=== PATIENT | female | born 1935 | race Caucasian/White ===

== ENCOUNTER 2017-03-26 16:59 | Inpatient (IN) | payer MEDICARE, OTHER ==
[2017-03-26 17:44] VITALS: BP 144/77
[2017-03-26] MEDS ORDERED: guaiFENesin 200 MG/10 ML UDC PO PRN (21:00)
[2017-03-27] MEDS: Pantoprazole 40 mg EC Tab PO SCH (08:56)
[2017-03-27] MEDS ORDERED: Enoxaparin 40 mg/0.4 mL 0.4mL Syr SUBQ SCH (09:00)
[2017-03-27] MEDS ORDERED: Potassium Chloride 20 mEq ER Tab PO SCH (09:00)
[2017-03-27] MEDS: Amoxicillin/Clavulanat 875/125 Tab PO SCH ×2 (10:05→16:48)
--- NOTE | 2017-03-27 10:36 | Diagnostic Imaging Report ---
Portable chest x-ray HISTORY: Shortness of breath, COPD Prior exams are not available for comparison. The patient is rotated. Heart size difficult to assess with portable technique and a poor inspiration. There is slight elevation of the left hemidiaphragm. Atherosclerotic calcification seen in the aorta. No acute focal pulmonary processes. Scoliosis and degenerative changes seen in the spine. IMPRESSION: 1. No acute focal pulmonary processes 2. Atherosclerotic vascular changes
[2017-03-27 10:54] LABS: % BASOPHILS 0.5 % (0.0-2.0); % EOSINOPHILS 0.7 % (0.0-5.0); % LYMPHOCYTES 25.5 % (20.0-50.0); % NEUTROPHILS 66.3 % (40.0-80.0); HEMATOCRIT 44.6 % (41.0-60); HEMOGLOBIN 14.8 gm/dL (12-16); MEAN CELL VOLUME 92.9 fl (81-100); MEAN CORPUSCULAR HEMOGLOBIN 30.8 pg (27.0-31.0); MEAN CORPUSCULAR HGB CONC 33.1 pg (28.0-36.0); MEAN PLATELET VOLUME 8.3 fl; NEUTROPHILE ABSOLUTE 5.8 Th/cmm (1.8-8.0); PLATELET COUNT 199 Th/cmm (150-400); WHITE BLOOD COUNT 8.7 Th/cmm (4.8-10.8)
[2017-03-27] MEDS ORDERED: Haloperidol Lactate 5 mg/mL 1mL Vial IM ONE (11:05)
[2017-03-27] MEDS ORDERED: Haloperidol Lactate 5 mg/mL 1mL Vial ONE (11:05)
[2017-03-27 11:58] LABS: ALB/GLOB RATIO 1.6 (1.0-1.8); ALKALINE PHOSPHATASE 93 U/L (34-104); ANION GAP 9.7 (7.0-16.0); BILIRUBIN,TOTAL 0.4 mg/dL (0.3-1.0); BUN - UREA NITROGEN 17 mg/dL (7-25); BUN/CREATININE RATIO 28.3; CALCIUM SERUM 9.6 mg/dL (8.6-10.3); CHLORIDE 103 mEq/L (98-107); CREATININE - SERUM 0.6 mg/dL (0.6-1.2); GLUCOSE 116 mg/dL (70-105); POTASSIUM SERUM 3.7 mEq/L (3.5-5.1); SGOT 10 U/L (13-39); SGPT/ALT 6 U/L (7-52); SODIUM SERUM 135 mEq/L (136-145)
[2017-03-27] MEDS: Albuterol/Ipratropium Neb 3 ML AERS HHN SCH ×2 (12:51→19:19)
--- NOTE | 2017-03-27 13:14 | History & Physical ---
ADMIT DATE: 03/27/2017 PATIENT IDENTIFICATION: An 81-year-old female. REQUESTING PHYSICIAN: Dr. Chakraborty. HISTORY SOURCE: Talking to the patient, reviewing the chart from [facility]. HISTORY OF PRESENT ILLNESS: This is an 81-year-old female who initially presented at [facility] after the patient had unknown number of Seroquel ingestion for a suicidal attempt where the patient was intubated and remained on ventilator. The patient was extubated and subsequently transferred here to [facility] for psychiatric care considering the patient had significant history of psychiatric illness and she needed to have her psych medications to be adjusted. The patient does have a diagnosis of COPD, hypertension, GERD, DJD, and osteoporosis. She also tells me she has a history of CVA as well many years ago and the patient is legally blind. MEDICATIONS: At the time of transfer, which I have reviewed and reconciled appropriately. ALLERGIES: The patient is not allergic to medications. SOCIAL HISTORY: She was living in [facility]. She stated that she still smokes. Denies any alcohol use, any street drug use. FAMILY MEDICAL HISTORY: Remarkable for hypertension. REVIEW OF SYSTEMS: The patient stated that she is legally blind. She can't see well. She has difficulty in walking, though the patient stated that she can live independently. She denies any headache. Denies any chest pain. Does have shortness of breath, but no paroxysmal nocturnal dyspnea or orthopnea. Denies any cough. Denies any fever, chills, abdominal pain, nausea, vomiting, hematemesis, hematuria, hematochezia, melena. No seizure or syncopal episode. PHYSICAL EXAMINATION: GENERAL: The patient is alert, awake, lying in the bed, very feisty, without any acute distress. VITAL SIGNS: Temperature 98.3, pulse 74, respiratory rate 18, blood pressure 153/86. HEENT: Normocephalic, atraumatic. Extraocular muscles are intact. Pupil react to light, legal blindness noted. Conjunctival congestion noted. Oropharynx is congested, absent upper and lower dentition noted. NECK: Supple. No JVD, no lymphadenopathy, thyromegaly. HEART: Both heart sounds are regular. No S3, no S4. CHEST: Lung equal in expansion. Mild expiratory wheezing. ABDOMEN: Protuberant, soft. No guarding, no rigidity. Bowel sounds are present. No palpable mass. EXTREMITIES: No edema, no cyanosis, no clubbing. Peripheral pulses +1.. No calf tenderness noted. Diffuse osteoarthritic changes noted. BACK: Remarkable kyphosis. No scoliosis. NEUROLOGIC: The patient is alert, awake, follows commands. No facial asymmetry. Moving upper extremities without any difficulty. Lower extremities, decreased power noted. Sensation to touch was unable to assess. Unable to do cerebellar sign due to high risk for fall. AVAILABLE DIAGNOSTIC DATA: Performed at [facility] are reviewed. Total time reviewing the record is approximately 15 minutes. CLINICAL IMPRESSION: 1. Status post Seroquel overdose. 2. Status post respiratory failure requiring endotracheal intubation and mechanical ventilation, suspected aspiration pneumonia. 3. Chronic obstructive pulmonary disease. 4. Hypertension. 5. Gastroesophageal reflux disease. 6. Degenerative joint disease. 7. Osteoporosis. 8. Legal blindness. 9. High risk for fall. 10. Psychiatric disorder. PLAN: The patient has been admitted at this time to Psychiatric Unit. Psychiatric evaluation and management deferred to psychiatrist. The patient will be placed on prednisone, she was taking 20 mg a day and tapered down as tolerated. The patient is to have Pulmicort and nebulizer treatment with albuterol and Atrovent. The patient will have a followup chest x-ray and blood tests done in order to assess aspiration pneumonia, as well as the potassium status as the patient was taking potassium tablet when she came to the [facility]. The patient will be continued her antihypertensive medication along with medications of her Protonix for her GERD and gastritis. The patient will have fall precautions as well nutritional supplement will be provided along with fall precautions. We will give further recommendations once other lab data are available. The patient is medically stable at this time to psychiatric treatment for her underlying psychiatric illness. In the view of her osteoporosis, I will give her calcium with vitamin D supplement for now and have further workup to be done. Further medications for osteoporosis can be given as an outpatient as well. Care plan is reviewed and discussed with the patient's assigned RN as well as the patient as well. JOB# [id number]
[2017-03-27] MEDS: Budesonide 0.5 Mg/2 mL Ud HHN SCH (19:19)
[2017-03-28] MEDS: Albuterol/Ipratropium Neb 3 ML AERS HHN SCH ×4 (01:00→20:09)
--- NOTE | 2017-03-28 03:40 | Psychosocial Evaluation ---
DATE OF SERVICE: 03/26/2017 IDENTIFYING DATA: The patient is an 81-year-old woman, resident of [facility]. Information obtained by directly interviewing the patient as well as reviewing the admission papers and they are reliable. JUSTIFICATION OF HOSPITALIZATION: The patient is admitted here on involuntary basis in view of her acute agitation. CHIEF COMPLAINT: "I don't know, people are trying to hurt me." HISTORY OF PRESENT ILLNESS: This is the first psychiatric hospitalization to the Geropsychiatric Unit for this patient who has been reported to have been screaming and yelling and has been out of control. The patient is reported to have been taken to the [facility] where she has been medically cleared and transferred over here for further stabilization. As per the information obtained, the patient has been a resident of the [facility] and the patient has been transferred to [facility] for altered level of consciousness and the patient is reported to have taken large dose of Seroquel, 9 pills, 50 mg each and was found unresponsive. Paramedics were called and the patient has been transferred over here for further stabilization. PAST PSYCHIATRIC HISTORY: Details are not known. MEDICAL HISTORY AND PHYSICAL EXAMINATION: Requested to be done by Dr. Manuel and is noted to be significant for COPD, arthritis and hypertension. The patient is also legally blind. The patient prior to the hospitalization on acetaminophen, albuterol, Mylanta, aspirin, Haldol, Lasix, prednisone, Seroquel and temazepam. The dose of the medications are not available at this time, how much of the Seroquel that she has been taking. The patient is also reported to have been started on 5 mg of the citalopram and 2 mg of the Abilify prior to her being in here, Haldol has been given 5 mg as needed basis. PHYSICAL OR SEXUAL ABUSE HISTORY: None. LEGAL PROBLEMS: None at this time. STRENGTH AND ASSETS: The patient seems to be motivated. MENTAL STATUS EXAMINATION: The patient is an 81-year-old woman admitted on 5150 for being a danger to self, danger to others as per the information obtained. The patient has ingested 9 tablets of 50 mg each of Seroquel in suicidal ideation and suicidal attempt. The patient refused to cooperate here at the hospitalization. The patient has been getting easily agitated and is very paranoid. On that basis, the patient has been placed on a 5150. As per the information, the patient is also reported to have been mentioning that she wanted to and does not want to live anymore and the patient has reported that she is going to be doing it again to take her life. The patient is noted to be very paranoid. The patient at this time is noted to be screaming and yelling and has to be given her morning dose of medications. The patient also has been displaying self-abusive behaviors and also trying to threat to hurt others. The patient is alert and aware that she is in the hospital, but she is stating that it is none of my business and she does not need to give me anymore information. DIAGNOSTIC IMPRESSION: AXIS I: 1a. Psychotic disorder, not otherwise specified. 1b. Depressive disorder, not otherwise specified. AXIS II: None. AXIS III: As per Dr. Manuel. IMMEDIATE TREATMENT PLAN: The patient is going to be observed on inpatient unit, provided with supportive psychotherapy. The patient is going to be closely monitored. Encouraged to participate in the groups and verbalize the concerns. When stabilized, the patient is going to be discharged to ____ followed up on an outpatient. The patient is going to be placed because the patient is not able to care for self at this time. The patient is going to be continued on the Abilify and Lexapro. ESTIMATED LENGTH OF STAY: Three to five days. DISCHARGE CRITERIA: When she no longer a threat to self or others and be able to cope up with the stress. JOB# [id number]
[2017-03-28] MEDS: Budesonide 0.5 Mg/2 mL Ud HHN SCH ×2 (07:15→20:09)
[2017-03-28] MEDS ORDERED: Escitalopram Oxalate 5 mg Tab PO SCH (09:00)
[2017-03-28] MEDS: Pantoprazole 40 mg EC Tab PO SCH (09:18)
[2017-03-28] MEDS: Amoxicillin/Clavulanat 875/125 Tab PO SCH ×2 (09:20→17:45)
[2017-03-28] MEDS: Calcium Carb/Vit D 500 mg/200 U Tab PO SCH (09:20)
[2017-03-28] MEDS: predniSONE 5 mg/5 mL UDC PO SCH (09:28)
--- NOTE | 2017-03-28 23:39 | Progress Notes ---
DATE: 03/28/2017 PSYCHIATRIC PROGRESS NOTE SUBJECTIVE: Staff was spoken to. The patient is interviewed. Mood is noted to be irritable. Affect is constricted. The patient is screaming and yelling. The patient is not able to be redirected. Coping skills are noted to be very poor. Continues to be very paranoid and has been accusing other people of doing things behind her back. ASSESSMENT: The patient is still psychotic. PLAN: To continue the patient with the current medications. I encouraged the patient to verbalize the concerns rather than to act out. JOB# [id number]
[2017-03-29] MEDS: Albuterol/Ipratropium Neb 3 ML AERS HHN SCH ×4 (00:50→19:19)
[2017-03-29] MEDS: Budesonide 0.5 Mg/2 mL Ud HHN SCH ×2 (08:53→19:19)
[2017-03-29] MEDS: Amoxicillin/Clavulanat 875/125 Tab PO SCH ×2 (11:35→16:33)
[2017-03-29] MEDS: Calcium Carb/Vit D 500 mg/200 U Tab PO SCH (11:35)
[2017-03-29] MEDS: Pantoprazole 40 mg EC Tab PO SCH (11:37)
[2017-03-29] MEDS: predniSONE 5 mg/5 mL UDC PO SCH (11:37)
--- NOTE | 2017-03-29 12:49 | Progress Notes ---
DATE: 03/29/2017 PSYCHIATRIC PROGRESS NOTE SUBJECTIVE: Staff was spoken to. The patient is interviewed. Mood is noted to be irritable. Affect is constricted. Insight and judgment are noted to be still impaired. The patient continues to be paranoid, screaming and yelling. No side effects to the medications are noted. The patient has been having difficult time to cope with the stress. The patient has been not noted to be depressed, but on the other hand has been getting easily irritable and angry. ASSESSMENT: The patient is still paranoid. PLAN: To continue the patient with supportive therapy. I encouraged the patient to verbalize the concerns rather than to act out. [facility]# [id number]
[2017-03-29] MEDS ORDERED: Probiotic Screen MC PRN (14:03)
[2017-03-30] MEDS: Albuterol/Ipratropium Neb 3 ML AERS HHN SCH ×4 (01:14→19:17)
[2017-03-30] MEDS: Budesonide 0.5 Mg/2 mL Ud HHN SCH ×2 (07:28→19:19)
[2017-03-30] MEDS: predniSONE 5 mg/5 mL UDC PO SCH (08:42)
[2017-03-30] MEDS: Amoxicillin/Clavulanat 875/125 Tab PO SCH ×2 (08:42→16:13)
[2017-03-30] MEDS: Pantoprazole 40 mg EC Tab PO SCH (08:43)
[2017-03-30] MEDS: Calcium Carb/Vit D 500 mg/200 U Tab PO SCH (08:44)
[2017-03-31] MEDS: Albuterol/Ipratropium Neb 3 ML AERS HHN SCH ×4 (01:25→19:08)
--- NOTE | 2017-03-31 05:35 | Progress Notes ---
DATE: 03/30/2017 TIME PATIENT SEEN: Staff was spoken to. The patient is interviewed. Mood is noted to be irritable. Affect is constricted. The patient is screaming and yelling. Insight and judgment at this time are noted to be very much limited. The patient has been getting easily upset and the patient's coping skills are noted to be very poor because of her age, we have been very careful with the medications. ASSESSMENT: The patient is still impulsive and screaming and yelling and in view of her mood swings is decided to add the Depakote 125 mg b.i.d. and follow the patient today. JOB# [id number]
[2017-03-31] MEDS: Budesonide 0.5 Mg/2 mL Ud HHN SCH ×2 (07:52→19:08)
[2017-03-31] MEDS: Amoxicillin/Clavulanat 875/125 Tab PO SCH ×2 (09:08→16:53)
[2017-03-31] MEDS: Pantoprazole 40 mg EC Tab PO SCH (09:08)
[2017-03-31] MEDS: Calcium Carb/Vit D 500 mg/200 U Tab PO SCH (09:08)
[2017-03-31] MEDS: predniSONE 5 mg/5 mL UDC PO SCH (09:09)
--- NOTE | 2017-03-31 20:34 | Progress Notes ---
DATE: 03/31/2017 The patient is still . The patient denies any chest pain, shortness of breath, palpitation, dizziness, nausea, vomiting. PHYSICAL EXAMINATION: VITAL SIGNS: See nurse's note. HEENT: No facial asymmetry, legally blindness noted. NECK: Supple. No JVD, no lymphadenopathy. HEART: Regular. LUNGS: Equal in expansion. No wheezing, no crackles. ABDOMEN: Soft, no guarding or rigidity. Bowel sounds are present, no palpable mass. EXTREMITIES: No edema. DIAGNOSTIC DATA: Available MAR reviewed. CLINICAL IMPRESSION: 1. Chronic obstructive pulmonary disease. 2. Hypertension. 3. Gastroesophageal reflux disease. 4. Degenerative joint disease. 5. Osteoporosis. 6. Psychotic disorder. 7. Fall risk. 8. Status post respiratory failure. 9. Seroquel overdose. PLAN: 1. Continue nebulizer treatment with tapering dose of prednisone. 2. Continue antihypertensive medicine. 3. Protonix. 4. Fall precautions. 5. Psych medication. 6. General nursing care. 7. The patient will be followed by us during the stay as needed as well. JOB# [id number]
[2017-04-01] MEDS: Albuterol/Ipratropium Neb 3 ML AERS HHN SCH ×4 (00:29→20:09)
--- NOTE | 2017-04-01 02:58 | Progress Notes ---
DATE: 03/31/2017 SUBJECTIVE: Staff was spoken to. The patient is interviewed. Mood is noted to be irritable. Affect is constricted. The patient has paranoid delusions. Coping skills are noted to be improving. The patient, however, continues to be irritable and angry and has been testing the limits and hence it is decided to increase the dose on the Depakote to 250 mg twice a day and closely monitor the patient. The patient is so far able to tolerate the medications. ASSESSMENT: ____. PLAN: To continue the patient with supportive therapy. I encouraged the patient to verbalize the concerns rather than to act out at this time. JOB# [id number]
[2017-04-01] MEDS: Budesonide 0.5 Mg/2 mL Ud HHN SCH ×2 (07:20→20:09)
[2017-04-01] MEDS: Pantoprazole 40 mg EC Tab PO SCH (08:41)
[2017-04-01] MEDS: Amoxicillin/Clavulanat 875/125 Tab PO SCH ×2 (08:42→16:20)
[2017-04-01] MEDS: Calcium Carb/Vit D 500 mg/200 U Tab PO SCH (08:42)
[2017-04-01] MEDS: predniSONE 5 mg/5 mL UDC PO SCH (08:44)
[2017-04-01] MEDS ORDERED: Maalox 30 mL Cup PO PRN (16:28)
--- NOTE | 2017-04-02 00:34 | Progress Notes ---
DATE: 04/01/2017 SUBJECTIVE: Staff was spoken to. The patient is interviewed. Mood is noted to be less irritable. Affect is appropriate. The patient's impulsivity seems to be coming under control. No side effects to the medications are noted at this time. The patient has not been screaming and yelling. Paranoia is noted, but no command hallucinations are noted. ASSESSMENT: The patient is less irritable. PLAN: To continue the patient with Risperdal and valproic acid and follow the patient with the supportive therapy. JOB# [id number]
[2017-04-02] MEDS: Albuterol/Ipratropium Neb 3 ML AERS HHN SCH ×4 (06:36→19:09)
[2017-04-02] MEDS: Budesonide 0.5 Mg/2 mL Ud HHN SCH ×2 (06:58→19:09)
[2017-04-02] MEDS: Pantoprazole 40 mg EC Tab PO SCH (09:46)
[2017-04-02] MEDS: Calcium Carb/Vit D 500 mg/200 U Tab PO SCH (09:46)
[2017-04-02] MEDS: predniSONE 5 mg/5 mL UDC PO SCH (12:15)
--- NOTE | 2017-04-02 12:37 | Progress Notes ---
DATE: 04/02/2017 SUBJECTIVE: Staff was spoken to. The patient is interviewed. Mood is noted to be anxious. The patient has been isolative and withdrawn. Screaming and yelling have been coming down, but there are times when the patient has been becoming unpredictable. The patient is currently on the Depakote that is being given 250 mg twice a day and the patient also has been getting the Risperdal 0.5 mg and has been able to tolerate the medication. ASSESSMENT: The patient is stabilizing. PLAN: To continue the patient with the current medications and follow with the supportive therapy. JOB# [id number]
[2017-04-03] MEDS: Albuterol/Ipratropium Neb 3 ML AERS HHN SCH ×4 (00:03→19:32)
[2017-04-03] MEDS: Budesonide 0.5 Mg/2 mL Ud HHN SCH ×2 (07:40→19:33)
[2017-04-03] MEDS: Calcium Carb/Vit D 500 mg/200 U Tab PO SCH (09:01)
[2017-04-03] MEDS: Pantoprazole 40 mg EC Tab PO SCH (09:03)
[2017-04-03] MEDS: predniSONE 5 mg/5 mL UDC PO SCH (09:06)
[2017-04-04] MEDS: Albuterol/Ipratropium Neb 3 ML AERS HHN SCH ×3 (01:23→13:39)
--- NOTE | 2017-04-04 01:35 | Progress Notes ---
DATE: 04/03/2017 Staff was spoken to. The patient is interviewed. Mood was noted to be less irritable. Affect is appropriate. Not suicidal or homicidal. Insight and judgment noted to be improving at this time. Her impulse control seems to be fair now. No major behavioral problems are reported today. The patient has been able to tolerate her medications. ASSESSMENT: The patient is stabilizing. PLAN: To continue the patient with the current medication and work with the case management coordinator with regards to possible discharge. JOB# [id number]
[2017-04-04] MEDS: Budesonide 0.5 Mg/2 mL Ud HHN SCH (07:39)
[2017-04-04] MEDS: Pantoprazole 40 mg EC Tab PO SCH (08:41)
[2017-04-04] MEDS: Calcium Carb/Vit D 500 mg/200 U Tab PO SCH (08:41)
[2017-04-04] MEDS: predniSONE 5 mg/5 mL UDC PO SCH (08:43)
--- NOTE | 2017-04-05 04:31 | Progress Notes ---
DATE: 04/04/2017 Staff was spoken to. The patient is interviewed. Mood is noted to be anxious. Affect is appropriate. Not suicidal or homicidal. Insight and judgment noted to be improving. Impulse control seems to be fair. The patient is not presenting with any threats to harm self or others at this time. The patient is awaiting possible placement. painting manager has been informed. Once the placement is secured, possibly the patient is going to be discharged. ASSESSMENT: The patient is stabilizing. PLAN: To discharge the patient when the placement is available. JOB# [id number]
== END 2017-04-04 18:55 | DRG 885 ==
LOC: GERO 16:59
PROVIDERS: ADMIT Psychiatry & Neurology Psychiatry; ATTEND Psychiatry & Neurology Psychiatry
DX: F29 Unspecified psychosis not due to a substance or known physiological condition (principal); J44.9 Chronic obstructive pulmonary disease, unspecified; I10 Essential (primary) hypertension; K21.9 Gastro-esophageal reflux disease without esophagitis; M19.90 Unspecified osteoarthritis, unspecified site; M81.0 Age-related osteoporosis without current pathological fracture; T43.591A Poisoning by other antipsychotics and neuroleptics, accidental (unintentional), initial encounter; H54.8 Legal blindness, as defined in USA; K29.70 Gastritis, unspecified, without bleeding; F32.9 Major depressive disorder, single episode, unspecified; Y92.89 Other specified places as the place of occurrence of the external cause; Z91.81 History of falling; Z86.73 Personal history of transient ischemic attack (TIA), and cerebral infarction without residual deficits; Z82.49 Family history of ischemic heart disease and other diseases of the circulatory system
CPT/HCPCS: 36415-UA; 71010-TC; 80053-TC; 85025-TC; 94640; 94760; J1630; J1650; J2060; J7512; Z7610